=== PATIENT | female | born 1995 | race Caucasian/White ===

== ENCOUNTER 2018-12-01 03:08 | Emergency (ER) | payer MEDICAID ==
[2018-12-01 03:16] VITALS: BP 115/72
--- NOTE | 2018-12-01 03:42 | NUR ---
PROVIDER AT BEDSIDE.
[2018-12-01 03:43] LABS: MICROSCOPIC NOT IND
[2018-12-01 03:45] LABS: CULTURE INDICATED? NO
[2018-12-01] MEDS ORDERED: ACETAMINOPHEN 325 MG TABLET ONE (03:55)
[2018-12-01] MEDS ORDERED: ACETAMINOPHEN 325 MG TABLET PO ONE (04:00)
--- NOTE | 2018-12-01 04:00 | NUR ---
LABS DRAWN, PT MEDICATED FOR PAIN.
[2018-12-01 04:03] LABS: BASOPHILS # (AUTO) 0.03 x10^3/uL (0-0.1); BASOPHILS % (AUTO) 0 % (0-1); EOSINOPHILS # (AUTO) 0.02 x10^3/uL (0-0.4); EOSINOPHILS % (AUTO) 0 % (1-7); LYMPHOCYTES # (AUTO) 1.22 x10^3/uL (1-3.4); LYMPHOCYTES % (AUTO) 10 % (22-44); MD NO; MEAN CORPUSCULAR HEMOGLOBIN 30.7 pg (27.0-34.8); MEAN CORPUSCULAR HGB CONC 33.8 g/dL (32.4-35.8); MEAN PLATELET VOLUME 7.4 fL (7.4-10.4); MONOCYTES # (AUTO) 0.94 x10^3/uL (0.2-0.8); MONOCYTES % (AUTO) 8 % (2-9); NEUTROPHILS # (AUTO) 9.62 x10^3/uL (1.8-6.8); NEUTROPHILS % (AUTO) 81 % (42-75); PLATELET COUNT 293 x10^3/uL (130-400); RED BLOOD COUNT 4.41 x10^6/uL (3.82-5.3); RED CELL DISTRIBUTION WIDTH 12.9 % (9.6-15.2)
--- NOTE | 2018-12-01 04:06 | NUR ---
PT TO US.
[2018-12-01 04:11] LABS: CHLORIDE 103 mmol/L (98-107)
[2018-12-01 04:21] LABS: ALANINE AMINOTRANSFERASE 16 U/L (12-78); ALBUMIN 3.5 g/dL (3.4-5.0); ALKALINE PHOSPHATASE 69 U/L (45-117); ANION GAP 6 mmol/L (5-15); BILIRUBIN,TOTAL 0.3 mg/dL (0.2-1.0); CALCIUM 8.4 mg/dL (8.5-10.1); CREATININE 0.58 mg/dL (0.55-1.02); TOTAL PROTEIN 7.3 g/dL (6.4-8.2)
--- NOTE | 2018-12-01 05:02 | NUR ---
PROVIDER AT BEDSIDE FOR D/C.
--- NOTE | 2018-12-01 05:08 | NUR ---
PT GIVEN D/C INSTRUCTIONS WITH PRESCRIPTION X1. ENCOURAGED HYDRATION ADDITIONALLY. ADDRESSED ALL QUESTIONS/CONCERNS, VERBALIZED UNDERSTANDING. PT AMBULATED OUT OF ED IN STABLE CONDITION WITH ALL BELONGINGS.
== END 2018-12-01 05:24 | disposition home or self-care (01) ==
LOC: ED 05:00
DX: M54.5 Low back pain (principal); R10.30 Lower abdominal pain, unspecified; M62.830 Muscle spasm of back
CPT/HCPCS: 36415; 76830; 80053; 81003; 83690; 84703; 85025; 99284